=== PATIENT | female | born 1990 | race Caucasian/White ===

== ENCOUNTER 2023-11-24 11:30 | Emergency (ER) | payer SELFPAY ==
[2023-11-24 12:07] VITALS: BP 160/90; PULSE 69; RESP 17; TEMP 36.8; O2SAT 98; BMI 64.5
--- NOTE | 2023-11-24 12:43 | ED_ITS ---
HPI - Dental/Oral General: Chief complaint: Dental/Oral Stated complaint: Pain in mouth and side of face, swollen Time Seen by Provider: 11/24/23 12:37 Source: patient Mode of arrival: ambulatory Limitations: no limitations History of Present Illness: 33-year-old female with history of poor dentition states she has had some upper incisor pain the last few days. States had some swelling to her face she feels as well. Denies any fevers does not have a dentist currently denies any worsening pain factors. Associated symptoms: Denies fever(s) Related Data Previous Rx's Medication Instructions Recorded cephalexin 500 mg capsule 500 mg PO TID 7 days #21 caps 11/24/23 naproxen 500 mg tablet (Naprosyn) 500 mg PO BID PRN pain #20 tabs 11/24/23 Allergies Allergy/AdvReac Type Severity Reaction Status Date / Time doxycycline Allergy ALGY-Anaphy Verified 11/24/23 12:11 laxis Sulfa (Sulfonamide Allergy ALGY-Anaphy Verified 11/24/23 12:11 Antibiotics) laxis Review of Systems Const: Denies: fever(s), chills, body aches or change in appetite ENMT: Reports: mouth pain; Denies: throat pain or dental pain Card: Denies: chest pain Resp: Denies: dyspnea GI: Denies: abdominal pain, nausea, vomiting or diarrhea Musc: Denies: neck pain or back pain Skin/Breast: Denies: rash Neuro: Denies: headache(s) Physical Exam Const: COMMON NORMALS: no acute distress, patient oriented x3 and healthy appearing HENMT: COMMON NORMALS: normocephalic and atraumatic HEAD & SCALP: normocephalic and atraumatic OTHER: Poor dentition multiple caries tenderness over tooth 8 and 9 no obvious abscess or trismus Eye: COMMON NORMALS: conjunctivae normal CONJUNCTIVA: Yes conjunctivae normal Neck/C-Spine: COMMON NORMALS: full ROM and supple Chest: COMMONS NORMALS: normal inspection of the chest Resp: COMMON NORMALS: normal respiratory effort Cardio: COMMON NORMALS: regular rate RATE: regular rate Extremity: COMMON NORMALS: normal to inspection and full ROM Neuro: COMMON NORMALS: patient oriented x3, moves all extremities and no focal motor deficits Psych: COMMON NORMALS: mental status grossly normal, Normal thought process present and cooperative THOUGHT PROCESS: Normal thought process present Skin: COMMON NORMALS: no rashes or lesions noted and no wounds GENERAL SKIN EXAM: no rashes or lesions noted Course Vital Signs: Vital signs: Vital Signs Temperature 98.2 F 11/24/23 12:07 Pulse Rate 69 11/24/23 12:07 Respiratory Rate 17 11/24/23 12:07 Blood Pressure 160/90 11/24/23 12:07 Pulse Oximetry 98 11/24/23 12:07 Oxygen Delivery Me thod Room Air 11/24/23 12:07 MDM - Dental/Oral Medical Decision Making Patient presents here with dental pain no abscess no trismus we will start her on antibiotics she is to follow-up with dentist return if worsening she understands agrees to plan. Medical Records I reviewed the patient's medical records. No radiology studies performed this visit Discharge Plan Discharge Patient Disposition: Home Clinical Impression: Toothache, Dental caries Condition: Stable Prescriptions: New cephalexin 500 mg capsule 500 mg PO TID 7 Days Qty: 21 0RF naproxen [Naprosyn] 500 mg tablet 500 mg PO BID PRN (Reason: pain) Qty: 20 0RF Discharge Orders: Discharge ED (Routine); Ordered 11/24/23 Ordered By: Michael Fernandes Referrals: Kris Mcdaniel DO [Primary Care Provider] - Discharge Diet: Advance as tolerated Discharge Activity: Resume usual activity Patient Instructions: Toothache (ED) Coding Level of Care Code ED 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
[2023-11-24] MEDS: cephALEXin 500 mg Capsule PO (13:06)
[2023-11-24] MEDS: HYDROcodone-acetaminophen 5-325 mg Tablet 1 TAB PO (13:06)
[2023-11-24 13:18] VITALS: BP 138/92; PULSE 74; RESP 16; O2SAT 98
== END 2023-11-24 13:17 | disposition home or self-care (01) ==
PROVIDERS: Emergency Provider Emergency Medicine; Family Provider Family Medicine; PCP Family Medicine
DX: K02.9 Dental caries, unspecified (principal)
CPT/HCPCS: 99283